=== PATIENT | male | born 1975 | race Caucasian/White ===

== ENCOUNTER 2017-07-10 11:14 | Emergency (ER) | payer MEDICAID, SELFPAY | END 2017-07-10 13:10 | disposition home or self-care (01) | PROVIDERS: Emergency Provider Emergency Medicine; Visit Provider Emergency Medicine | DX: R10.84 Generalized abdominal pain; K52.9 Noninfective gastroenteritis and colitis, unspecified | CPT/HCPCS: 74176; 80053; 81001; 85025; 99283 ==